=== PATIENT | male | born 1985 | race Two or more races ===

== ENCOUNTER 2022-08-06 17:05 | Inpatient (IN) | payer OTHER ==
[2022-08-06 20:27] VITALS: BMI 26.6
[2022-08-06] MEDS ORDERED: hydrOXYzine PAMOATE 25 MG CAPSULE (FP) PO PRN (21:13)
[2022-08-06] MEDS ORDERED: POLYETHYLENE GLYCOL (HEALTHYLAX) 3350 17 GM PACKET PO PRN (21:13)
[2022-08-06] MEDS ORDERED: NALOXONE HCL (KLOXXADO) 8 MG SPRAY NS PRN (21:13)
[2022-08-06] MEDS ORDERED: BISMUTH SUBSALICYLATE 524 MG/30 ML PO PRN (21:13)
[2022-08-06] MEDS ORDERED: MAGNESIUM HYDROX 2400MG/30ML ORAL SUSPENSION 30 ML CUP PO PRN (21:13)
[2022-08-06] MEDS ORDERED: IBUPROFEN 600 MG TABLET (FP) PO PRN (21:13)
[2022-08-06] MEDS ORDERED: ACETAMINOPHEN 325 MG TABLET (FP) PO PRN (21:13)
[2022-08-06] MEDS ORDERED: P-EPHED 60MG/TRIPROLIDI 2.5MG TABLET PO PRN (21:13)
[2022-08-06] MEDS ORDERED: BENZONATATE 200 MG CAPSULE PO PRN (21:13)
[2022-08-06] MEDS ORDERED: MAG HYDROX/AL HYDROX/SIMETH 30 ML UNIT-DOSE CUP PO PRN (21:13)
[2022-08-06] MEDS ORDERED: guaiFENesin 600 MG TABLET.ER (FP) PO PRN (21:13)
[2022-08-06] MEDS ORDERED: ONDANSETRON *ODT* 4 MG TABLET SL PRN (21:13)
[2022-08-06] MEDS ORDERED: NALOXONE HCL 0.4 MG/ML VIAL IM PRN (21:13)
[2022-08-06] MEDS ORDERED: LOPERAMIDE HCL 2 MG CAPSULE PO PRN (21:13)
[2022-08-06] MEDS ORDERED: DICYCLOMINE HCL 10 MG CAPSULE PO PRN (21:13)
[2022-08-06] MEDS ORDERED: BENZOCAINE/MENTHOL (CHLORASEPTIC ) LOZENGE MM PRN (21:13)
[2022-08-06] MEDS ORDERED: IBUPROFEN 400 MG TABLET (FP) PO PRN (21:13)
[2022-08-06] MEDS ORDERED: cloNIDine HCL 0.1 MG TABLET PO PRN (21:15)
[2022-08-06] MEDS: MELATONIN 5 MG TABLETS PO SCH (23:00)
[2022-08-06] MEDS: METHOCARBAMOL 500 MG TABLET PO PRN (23:00)
[2022-08-06] MEDS ORDERED: methaDONE HCL 10 MG TABLET (FOR DETOX USE ONLY) PO ONE (23:00)
[2022-08-06] MEDS: THIAMINE HCL 100 MG TABLET (FP) PO SCH (23:00)
[2022-08-07] MEDS: PRENATAL VITAMINS W/ FOLIC ACID TABLET (FP) PO SCH (10:17)
[2022-08-07 11:05] LABS: POTASSIUM 4.2 mmol/L (3.5-5.1)
[2022-08-07 11:08] LABS: CALCIUM 8.3 mg/dL (8.5-10.1)
[2022-08-07 11:09] LABS: ALBUMIN 3.2 g/dl (3.4-5.0); BLOOD UREA NITROGEN 9.8 mg/dL (7-18); HEMATOCRIT 36.9 % (35.4-49); HEMOGLOBIN 12.4 GM/dL (11.7-16.9); MCH 29.6 pg (25.7-33.7); MCHC 33.6 g/dl (32.0-35.9); MEAN CELL VOLUME 88.1 fl (80-96); MEAN PLT VOLUME 7.9 fl (7.5-11.1); PLATELET COUNT 252 10^3/uL (134-434); RDW 13.6 % (11.9-15.9); WHITE BLOOD COUNT 5.4 K/mm3 (4.0-10.0)
[2022-08-07 11:12] LABS: CREATININE 0.7 mg/dL (0.55-1.3)
[2022-08-07 11:14] LABS: BILIRUBIN,TOTAL 0.8 mg/dL (0.2-1); TOT PROT 6.1 g/dl (6.4-8.2)
[2022-08-07] MEDS: METHOCARBAMOL 500 MG TABLET PO PRN (22:27)
[2022-08-07] MEDS: THIAMINE HCL 100 MG TABLET (FP) PO SCH (22:27)
[2022-08-07] MEDS: MELATONIN 5 MG TABLETS PO SCH (22:27)
[2022-08-08] MEDS ORDERED: methaDONE HCL 10 MG TABLET (FOR DETOX USE ONLY) PO ONE (10:00)
[2022-08-08] MEDS: PRENATAL VITAMINS W/ FOLIC ACID TABLET (FP) PO SCH (10:18)
[2022-08-08] MEDS ORDERED: diazePAM 5 MG TABLET PO PRN (11:19)
[2022-08-08] MEDS ORDERED: PENICILLIN G BENZATHINE 2,400,000 UNIT/4 ML PFS IM ONE (12:39)
[2022-08-08] MEDS: MELATONIN 5 MG TABLETS PO SCH (22:33)
[2022-08-08] MEDS: THIAMINE HCL 100 MG TABLET (FP) PO SCH (22:33)
[2022-08-08] MEDS: METHOCARBAMOL 500 MG TABLET PO PRN (23:43)
[2022-08-09 10:01] VITALS: BP 109/77; PULSE 117; RESP 18; TEMP 97.8
[2022-08-09] MEDS: PRENATAL VITAMINS W/ FOLIC ACID TABLET (FP) PO SCH (12:00)
[2022-08-10] MEDS ORDERED: methaDONE HCL 10 MG TABLET (FOR DETOX USE ONLY) PO ONE (10:00)
== END 2022-08-09 08:51 | disposition left against medical advice (07) | DRG 770 ==
LOC: YASAS 17:05 → Y3N 21:31
PROVIDERS: ADMIT Allergy & Immunology; ATTEND Surgery
PROC: HZ2ZZZZ Detoxification Services for Substance Abuse Treatment (ICD-10-PCS; principal; 2022-08-06)
DX: F11.23 Opioid dependence with withdrawal (principal); F16.10 Hallucinogen abuse, uncomplicated; F17.210 Nicotine dependence, cigarettes, uncomplicated; Z87.891 Personal history of nicotine dependence; Z86.19 Personal history of other infectious and parasitic diseases
CPT/HCPCS: 36415; 80053; 85027; 86593; 86780; 87635; Q0162

== ENCOUNTER 2023-05-15 22:18 | Emergency (ER) | payer OTHER ==
[2023-05-15 22:36] VITALS: BP 149/85; PULSE 99; RESP 18; TEMP 98.4; BMI 25.1
[2023-05-16] MEDS ORDERED: cloNIDine HCL 0.1 MG TABLET ONE (00:09)
[2023-05-16] MEDS ORDERED: ALPRAZolam 1 MG TABLET ONE (00:10)
[2023-05-16] MEDS: ALPRAZolam 2 MG TABLET PO ONE (00:14)
[2023-05-16] MEDS: cloNIDine HCL 0.1 MG TABLET PO ONE (00:14)
== END 2023-05-16 00:43 | disposition home or self-care (01) ==
LOC: JER 22:18
DX: F41.9 Anxiety disorder, unspecified (principal); F11.23 Opioid dependence with withdrawal; R25.1 Tremor, unspecified
CPT/HCPCS: 93005; 93010; 99283-25